=== PATIENT | female | born 1980 | race Caucasian/White ===

== ENCOUNTER → 2016-06-24 | Outpatient (CLI) | payer OTHER ==
[~2016-06-24] MED LIST: HYOS0.1281 PO; NORE-98 PO; OMEP20TA7 PO; ONDA8TAB9 PO
--- OUTSIDE RECORDS SUMMARY | 2016-06-24 07:41 | XMS REPORT | Continuity of Care Document ---
Author Author [facility] Organization [facility] Address Unknown Phone Unavailable Allergies Active Description Code Type Severity Reaction Onset Reported/Identified Relationship to Patient Clinical Status Yes No Known Drug Allergies [id number] Drug Allergy Unknown N/ A 01/06/2015 Medications Problems Date Dx Coded Attending Type Code Diagnosis Diagnosed By 12/23/2014 IMANI COLE, GABRIELE A Ot 285.9 12/23/2014 IMANI COLE, GABRIELE A Ot 790.29 12/23/2014 IMANI COLE, GABRIELE A Ot V58.69 12/24/2014 IMANI COLE, GABRIELE A Ot 285.9 12/24/2014 IMANI COLE, GABRIELE A Ot 790.29 12/24/2014 IMANI COLE, GABRIELE A Ot V58.69 12/29/2014 IMANI COLE, GABRIELE A Ot 285.9 12/29/2014 IMANI COLE, GABRIELE A Ot 790.29 12/29/2014 IMANI COLE, GABRIELE A Ot V58.69 01/06/2015 JUSTINO WARNER APRN Ot 558.9 01/06/2015 JUSTINO WARNER APRN Ot 789.03 01/06/2015 IMANI COLE, GABRIELE A Ot 285.9 01/06/2015 IMANI COLE, GABRIELE A Ot 790.29 01/06/2015 IMANI COLE, GABRIELE A Ot V58.69 01/09/2015 IMANI COLE, GABRIELE A Ot 285.9 01/09/2015 IMANI COLE, GABRIELE A Ot 790.29 01/09/2015 IMANI COLE, GABRIELE Kovacs Ot V58.69 Procedures Results Encounters ACCT No. Visit Date/Time Discharge Status Pt. Type Provider Facility Loc./Unit Complaint [id number] 01/06/2015 16:01:00 2014 17:45:00 DIS Emergency JUSTINO WARNER APRN [facility] ER [id number] 12/12/2014 08:22:00 2014 23:59:59 CLS Outpatient IMANI COLE, GABRIELE [facility] LAB
--- NOTE | 2016-06-24 19:27 | Diagnostic Imaging Report ---
Digital mammogram bilateral diagnostic. INDICATION: Left breast lump. The current study was also evaluated with a Computer Aided Detection (CAD) system. FINDINGS: This is the patient's baseline study. At this time, she does complain of a lump in the 6 o'clock position of the left breast. A marker was placed over the area of concern. In this region, there does appear to be a small 5 mm rounded density. This finding has a generally benign appearance. Even so, I would recommend that ultrasound be performed for further study. The fibroglandular tissue in both breasts is dense. This does limit the sensitivity of this exam. There is no primary or secondary sign of malignancy noted otherwise. IMPRESSION: There is a small benign-appearing nodular density in the area of the patient's palpable abnormality in the 6 o'clock position of the left breast. Ultrasound would be recommended to better characterize this finding. ACR BI-RADS Category 0: Incomplete. (Needs additional imaging evaluation). Result letter will be mailed to the patient. Note: At least 10% of breast cancer is not imaged by mammography. Dictated by: Dictated on workstation # [id number]
--- NOTE | 2016-06-24 19:39 | Diagnostic Imaging Report ---
Ultrasound of the left breast. INDICATION: Left breast lump. FINDINGS: The baseline screening mammogram performed earlier today noted a small area of increased density in the area of the patient's palpable abnormality in the 6 o'clock position of the left breast. On this study, there do appear to be two small hypoechoic lesions with internal echoes. These measure 0.6 x 0.4 x 0.9 cm and 0.7 x 0.4 x 0.7 cm. I suspect that these are small cysts which have been slightly complicated by infection and/or hemorrhage. There is no internal vascularity to suggest that these are neoplastic in nature. Even so, I would recommend that a short-term (three-month) follow-up ultrasound exam be performed for further study. IMPRESSION: There are two small hypoechoic areas in the area of the patient's palpable abnormality. Most likely these are small cysts, slightly complicated by infection and/or hemorrhage. Recommendations as above. ACR BI-RADS Category 3: Probably benign findings. Dictated by: Dictated on workstation # [id number]
== END ==
LOC: RAD 07:37
PROVIDERS: ATTEND Nurse Practitioner Family
DX: N63 Unspecified lump in breast (principal)
CPT/HCPCS: 76642; 77066

== ENCOUNTER → 2016-09-29 | Outpatient (CLI) | payer OTHER ==
--- NOTE | 2016-09-29 20:25 | Diagnostic Imaging Report ---
EXAMINATION: Left breast ultrasound. INDICATION: Left breast pain and lump under the nipple. Followup lesions seen on 06/24/16. FINDINGS: Retroareolar 1.3 x 0.9 x 0.9 cm septated cystic structure is seen with no internal vascularity. There is no significant internal echoes other than the septation seen. There is also a 4:00 periareolar hypoechoic lesion, measuring 6 mm with mild internal echoes but without internal vascularity and there is through-transmission seen. Some dilated ducts are also seen. Compared to the previous study, the dominant lesion appears slightly larger. IMPRESSION: Duct ectasia and suggestion of complicated cyst in the periareolar region with no definite solid mass seen. Ultrasound followup in six months is recommended to ensure stability. ACR BI-RADS Category 3: Probably benign findings. Result letter will be mailed to the patient. Note: At least 10% of breast cancer is not imaged by mammography. Dictated by: Dictated on workstation # [id number]
== END ==
LOC: RAD 10:14
PROVIDERS: ATTEND Nurse Practitioner Family
DX: N60.42 Mammary duct ectasia of left breast (principal)
CPT/HCPCS: 76642

== ENCOUNTER → 2017-11-17 | Outpatient (CLI) | payer OTHER ==
--- NOTE | 2017-11-17 11:58 | Diagnostic Imaging Report ---
INDICATION: Followup left breast cyst. COMPARISON: 09/29/2016. FINDINGS: Ductal ectasia is again identified. The previously noted septated cystic mass at the 6 o'clock retroareolar region is again noted measuring approximately 11 mm x 8 mm compared with 13 mm x 10 mm. An adjacent hypoechoic structure at the 6 o'clock location 2 cm from the nipple is stable at 7 mm x 5 mm. No new abnormality is seen. IMPRESSION: Stable ductal ectasia and septated cystic mass in the retroareolar left breast when compared with the exam of 1 year earlier. An additional 6 month followup is recommended to confirm stability. ACR BI-RADS Category 3: Probably benign findings. Dictated by: Dictated on workstation # [id number]
== END ==
LOC: RAD 09:10
PROVIDERS: ATTEND Nurse Practitioner Family
DX: N60.42 Mammary duct ectasia of left breast (principal); N60.02 Solitary cyst of left breast
CPT/HCPCS: 76642

== ENCOUNTER 2018-02-09 12:00 | Outpatient (CLI) | payer OTHER ==
[~2018-02-09] VITALS: Ht 162.6 cm; Wt 63.5 kg
[2018-02-09] MEDS ORDERED: PANT40TA2 PO (13:28)
[2018-02-09] MEDS ORDERED: MIRA25TA PO (13:28)
[2018-02-09] MEDS ORDERED: bcp PO (13:28)
[2018-02-09] MEDS ORDERED: SUCR1TAB36 PO (13:28)
[2018-02-09] MEDS ORDERED: AMPH15TA PO (13:28)
[2018-02-09] MEDS ORDERED: RANI150T46 PO (13:28)
== END 2018-02-09 13:31 | disposition home or self-care (01) ==
LOC: PREOP 12:00
PROVIDERS: ATTEND Surgery
DX: Z01.818 Encounter for other preprocedural examination (principal)

== ENCOUNTER 2018-02-12 07:53 | Day surgery (SDC) | payer OTHER ==
[~2018-02-12] VITALS: Ht 162.6 cm; Wt 63.5 kg
[~2018-02-12 07:53] MED LIST changes: +AMPH15TA PO; +MIRA25TA PO; +PANT40TA2 PO; +RANI150T46 PO; +SUCR1TAB36 PO; +bcp PO
[2018-02-12] MEDS ORDERED: LACTATED RINGERS 1,000 ML IV ONE (07:57)
[2018-02-12 08:00] VITALS: BP 125/73
[2018-02-12] MEDS ORDERED: LACTATED RINGERS 1,000 ML IV STA (08:04)
--- NOTE | 2018-02-12 08:12 | Progress Note-Pre Operative ---
Pre-Operative Progress Note H&P Reviewed The H&P was reviewed, patient examined and no changes noted. Time Seen by Provider: 08:07 Date H&P Reviewed: Feb 12, 2018 Time H&P Reviewed: 08:08 Pre-Operative Diagnosis: Chronic Gastritis BRIANNA TURNER DO Feb 12, 2018 08:12
[2018-02-12] MEDS ORDERED: HURRICAINE EXT TUBE (BENZOCAINE) XX PRN (08:15)
[2018-02-12] MEDS ORDERED: proPOfol 200 MG/20 ML (DIPRIVAN) VIAL IV ONE ×2 (08:23→08:42)
[2018-02-12] MEDS ORDERED: LIDOCAINE PF 2% 5 ML (XYLOCAINE) VIAL ONE (08:24)
--- NOTE | 2018-02-12 08:56 | Progress Note-Post Operative ---
Post-Operative Progess Note Surgeon (s)/Pole Framer (s) Surgeon BRIANNA TURNER DO Pole Framer: none Pre-Operative Diagnosis Chronic Gastritis Post-Operative Diagnosis Same plus gastric polyps Procedure & Operative Findings Date of Procedure 02/12/18 Procedure Performed/Findings EGD with polypectomy EGD with bx Anesthesia Type IV sedation by PHYSICIAN OBSTETRICIAN Estimated Blood Loss Estimated blood loss (mL): scant Specimens/Packing Specimens Removed Duodenal bx Antral bx GE jxn bx Polyp and portion of second polyp from body of stomach BRIANNA TURNER DO Feb 12, 2018 08:56
--- NOTE | 2018-02-12 08:57 | Endoscopy Discharge Instruct ---
Endo Procedure/Findings Findings 1.: Polyp 2.: Gastritis Discharge Instructions - Activity: You might feel a little sleepy until tomorrow. This is due to the medicine you received to relax you. Until tomorrow, you should: NOT drive a car, operate machinery or power tools. NOT drink any alcoholic beverages. NOT make any important decisions or sign importortant papers. Do not return to work until tomorrow, unless otherwise instructed. Resume previous activities tomorrow. Diet: Start by taking liquids. If you tolerate liquids, advance to solid food. make an appointment for one week. Notify Physician - If you experience excessive bleeding, unusual abdominal pain, fever, or chest pain, contact your doctor immediately. Follow-Up: - I have received and understand the above instructions and will call my doctor if I have any further questions. Patient Signature Date Nurse Signature Other (Relationship) BRIANNA TURNER DO Feb 12, 2018 08:57
[2018-02-12] MEDS ORDERED: HURRICAINE EXT TUBE (BENZOCAINE) ONE (09:00)
[2018-02-12 09:10] VITALS: BP 108/56
[2018-02-12 09:40] VITALS: BP 112/76
[2018-02-12 09:47] VITALS: BP 112/76
--- NOTE | 2018-02-12 13:30 | Anesthesia-General Post-Op ---
MAC Patient Condition Mental Status/LOC: Same as Preop Cardiovascular: Satisfactory Nausea/Vomiting: Absent Respiratory: Satisfactory Pain: Controlled Complications: Absent Post Op Complications Complications None Follow Up Care/Instructions Patient Instructions None needed. Anesthesiology Discharge Order Discharge Order Patient is doing well, no complaints, stable vital signs, no apparent adverse anesthesia problems. No complications reported per nursing. AYALA PALUMBO CRNA Feb 12, 2018 13:30
--- NOTE | 2018-02-12 19:39 | OPERATIVE REPORT ---
DATE OF SERVICE: 02/12/2018 PREOPERATIVE DIAGNOSIS: Chronic gastritis. POSTOPERATIVE DIAGNOSES: Chronic gastritis and multiple gastric polyps. PROCEDURE: 1. EGD with polypectomy. 2. EGD with biopsy. SURGEON: Chidi Iniguez DO PIECE MARKER SMALL ARMS: None. ANESTHESIA: IV sedation by the COMMUNITY HEALTH SPECIALIST. SPECIMEN: 1. One polyp from the duodenum, one polyp from the antrum and one polyp from the GE junction. 2. Two polyps from the body of the stomach, one removed in total. INDICATION FOR PROCEDURE: The patient is a 37-year-old female, who has severe gastritis and getting worse lately. The Protonix not working and she needed EGD for workup. FINDINGS: The patient had some gastritis, it looks like also possibly duodenitis and some changing at the GE junction and as well she had multiple polyps in the body of the stomach. PROCEDURE NOTE: After informed consent was obtained, the patient was brought to the endoscopy suite and placed in the left lateral decubitus position. She was administered IV sedation by the COMMUNITY HEALTH SPECIALIST, who then monitored her vitals the entire time, heart rate, blood pressure and pulse ox. The scope was inserted down the mouth through the esophagus into the stomach, pushed all the way to the stomach to the pylorus and then into the duodenum. Duodenum looked a little bit red. There was some duodenitis, did a biopsy here, pulled back into the antrum, did another biopsy and then pulled back a little more and saw multiple polyps in the body of stomach. I had elected to remove two of these polyps and sent to pathology and then retroflexed. I did not really see a hiatal hernia. At this point, then pulled the scope back into the GE junction, there was a little bit of creeping up of the Z line. A biopsy was done here and then pulled back from the esophagus, took another picture, esophagus looked normal. I then pulled the scope slowly out of the esophagus out of the mouth. The patient tolerated the procedure. She was then recovered in endoscopy suite. Job ID: [id number] DocumentID: [id number] Dictated Date: 02/12/2018 09:56:07 Farm Management Agent Date: 02/12/2018 19:38:29 Dictated By: CHIDI INIGUEZ DO
--- NOTE | 2018-02-15 14:42 | Physician Query-Final Dx ---
EMILY FAROOQ 02/15/18 1442: Clinic Account Progress/Dx Physician Query: Please specify type of polypectomy used ( ie, hot bx, snare, ect ) thank you Date of Service Feb 12, 2018 at 07:53 BRIANNA TURNER DO 02/20/18 1436: Clinic Account Progress/Dx Physician Query: Please give diagnosis (cold biopsy) DIAGNOSIS: Diagnosis: (1) Chronic gastritis without bleeding Qualifiers: Qualified Codes: K29.30 - Chronic superficial gastritis without bleeding Diagnosis Cold biopsy EMILY FAROOQ Feb 15, 2018 14:42 BRIANNA TURNER DO Feb 20, 2018 14:36
== END 2018-02-12 09:48 | disposition home or self-care (01) ==
LOC: ENDO 07:53
PROVIDERS: ATTEND Surgery
DX: K29.30 Chronic superficial gastritis without bleeding (principal); K31.7 Polyp of stomach and duodenum; K29.80 Duodenitis without bleeding; K21.9 Gastro-esophageal reflux disease without esophagitis; Z79.899 Other long term (current) drug therapy
CPT/HCPCS: 84703; 88305; 88307; 88342

== ENCOUNTER → 2018-03-29 | Outpatient (CLI) | payer OTHER ==
[~2018-03-29] MED LIST changes: +BARIUM SUSPENSION 105% (LIQUID POLIBAR PLUS) 240 ML/DOSE PO ONE; +BARIUM SUSPENSION 60% (LIQUID EZ PAQUE) 240 ML DOSE PO ONE
--- NOTE | 2018-03-29 09:54 | Diagnostic Imaging Report ---
Indication: Gastroesophageal reflux. The patient ingested effervescent crystals as well as thin and thick barium and imaging of the esophagus was performed. 1 minute and 21 seconds of fluoroscopy was utilized. Preliminary radiograph of the chest is normal. The esophagus has a smooth contour. No mass or stricture is identified. No gastroesophageal reflux or hiatal hernia was visualized. The images of the stomach are unremarkable. Impression: Unremarkable esophagram. Dictated by: Dictated on workstation # [id number]
== END ==
LOC: RAD 08:17
PROVIDERS: ATTEND Internal Medicine Gastroenterology
DX: K21.9 Gastro-esophageal reflux disease without esophagitis (principal)
CPT/HCPCS: 74220

== ENCOUNTER → 2019-04-30 | Outpatient (CLI) | payer OTHER ==
[~2019-04-30] MED LIST changes: -BARIUM SUSPENSION 105% (LIQUID POLIBAR PLUS) 240 ML/DOSE PO ONE; -BARIUM SUSPENSION 60% (LIQUID EZ PAQUE) 240 ML DOSE PO ONE; +RANI-613 PO; -RANI150T46 PO
--- NOTE | 2019-04-30 09:46 | Diagnostic Imaging Report ---
INDICATION: Followup left breast. Patient's prior report from 11/17/2017 recommended a 6 month followup. The patient did not return for a followup. This is an 18 month followup. COMPARISON: 06/24/2016. TECHNIQUE: 2D and 3D bilateral diagnostic mammography was performed with CAD. FINDINGS: Both breasts remain heterogeneously dense, limiting the sensitivity of mammography. There is a lymph node in the right axillary tail. No dominant mass is seen. No malignant appearing microcalcifications are identified. The axillae are unremarkable. IMPRESSION: No mammographic features suspicious for malignancy are identified. Even so, sonographic interrogation of the 6 o'clock location of the left breast at the area of the previously described complicated cyst is recommended and will be performed today. ACR BI-RADS Category 0: Incomplete. (Needs additional imaging evaluation). Result letter will be mailed to the patient. Note: At least 10% of breast cancer is not imaged by mammography. Dictated by: Dictated on workstation # [id number]
--- NOTE | 2019-04-30 09:49 | Diagnostic Imaging Report ---
INDICATION: Followup of left breast cysts. COMPARISON: Correlation is made with the prior left breast ultrasound from 11/17/2017 and the diagnostic mammogram performed earlier this same day. FINDINGS: Ductal ectasia is again noted. The 6 o'clock retroareolar cyst is similar in size measuring 13 mm x 5 mm x 7 mm compared with 11 mm x 8 mm. The smaller cyst at the 6 o'clock location 2 cm from the nipple has decreased in size measuring 5 mm x 6 mm x 4 mm compared with 7 mm x 5 mm x 7 mm. No new abnormality is seen. IMPRESSION: Ductal ectasia with retroareolar cysts as described, stable when compared with ultrasounds dating back to September 2016. The patient may return to routine annual screening mammography. ACR BI-RADS Category 2: Benign findings. Dictated by: Dictated on workstation # [id number]
== END ==
LOC: RAD 08:15
PROVIDERS: ATTEND Nurse Practitioner Family
DX: N60.02 Solitary cyst of left breast (principal); N60.42 Mammary duct ectasia of left breast
CPT/HCPCS: 76642; 77066

== ENCOUNTER 2020-04-09 12:38 | Emergency (ER) | payer OTHER ==
[~2020-04-09] VITALS: Ht 170 cm; Wt 62.0 kg
[2020-04-09] MEDS ORDERED: NS IV 1000 ML 1,000 ML IV SCH (13:00)
[2020-04-09] MEDS ORDERED: ACETAMINOPHEN 325 MG TABLET PO ONE (13:00)
--- NOTE | 2020-04-09 13:23 | ED General ---
General Stated Complaint: COVID +,WEAKNESS, DIZZINESS Source of Information: Patient Exam Limitations: No Limitations History of Present Illness Date Seen by Provider: Apr 09, 2020 Time Seen by Provider: 13:10 Initial Comments Patient is a 39-year-old female who presents to the emergency room with a chief complaint of generalized weakness, dizziness with standing and concerns for dehydration. Patient had a telehealth visit with her primary care this morning and they were concerned about dehydration. Patient states that when she stands up her heart rate tends to go to about 140 bpm. Patient states that she was a "presumptive positive" for coronavirus about 10 days ago. Patient states she started getting "all the symptoms" with shortness of breath, body aches, subjective fever and cough. Patient also states that she has lost her sense of smell and the sense of salty versus sweet taste. No complaints of GI illness currently although she did have 1 day of diarrhea about a week ago. No complaints. No sore throat no runny nose or congestion. All other review of systems reviewed and negative except as stated. Timing/Duration: 1 Week Severity: Mild Allergies and Home Medications Allergies Coded Allergies: metoclopramide (Verified Allergy, Unknown, 02/09/18) Home Medications Dextroamphetamine/Amphetamine 15 Mg Tablet, 15 MG PO DAILY, (Reported) Mirabegron 25 Mg Tab.er.24h, 25 MG PO DAILY, (Reported) Pantoprazole Sodium 40 Mg Tablet.dr, 40 MG PO BID, (Reported) Ranitidine HCl 150 Mg Tablet, 150 MG PO DAILY, (Reported) Sucralfate 1 Gm Tablet, 1 GM PO QID, (Reported) [bcp] , 1 TAB PO DAILY, (Reported) Patient Home Medication List Home Medication List Reviewed: Yes Review of Systems Review of Systems Constitutional: see HPI, malaise, weakness EENTM: no symptoms reported Respiratory: cough (Mild), short of breath (Mild) Cardiovascular: no symptoms reported Gastrointestinal: no symptoms reported Genitourinary: no symptoms reported : No Musculoskeletal: muscle pain (Body aches) Skin: no symptoms reported All Other Systems Reviewed Negative Unless Noted: Yes Past [place]mf-Yxdxmu Hx Patient Social History Recent Hopitalizations: No Immunizations Up To Date Date of Influenza Vaccine: Jan 29, 2018 Past Medical History Appendectomy Gastroesophageal Reflux, Irritable Bowel Adverse Reaction/Blood Tranf: No Physical Exam Vital Signs Vital Signs - First Documented 04/09/20 13:43 Temp 36.8 Pulse 104 Resp 16 B/P (MAP) 134/87 (103) Pulse Ox 98 Capillary Refill : Height, Weight, BMI Height: 5'4.00" Weight: 140lbs. 0.0oz. 63.921007bx; 24.0 BMI Method:Stated General Appearance: No Apparent Distress, WD/WN Eyes: Bilateral Eye Normal Inspection, Bilateral Eye PERRL, Bilateral Eye EOMI HEENT: Normal ENT Inspection Neck: Supple Respiratory: Lungs Clear, Normal Breath Sounds, No Accessory Muscle Use, No Respiratory Distress Cardiovascular: Regular Rate, Rhythm Gastrointestinal: Normal Bowel Sounds, Non Tender, Soft Extremity: Normal Inspection, Normal Range of Motion, Non Tender, No Calf Tenderness Neurologic/Psychiatric: Alert, Oriented x3, No Motor/Sensory Deficits, Normal Mood/Affect, data support specialist II-XII Norm as Tested Skin: Normal Color, Warm/Dry, Other (Normal skin turgor) Focused Exam Lactate Level 04/09/20 13:10: Lactic Acid Level 2.78*H Lactic Acid Level Laboratory Tests Test 04/09/20 13:10 Lactic Acid Level 2.78 MMOL/L (0.50-2.00) *H Progress/Results/Core Measures Suspected Sepsis SIRS Temperature: Pulse: Respiratory Rate: Laboratory Tests 04/09/20 13:10: White Blood Count 5.9 Blood Pressure / Mean: 04/09/20 13:10: Lactic Acid Level 2.78*H Laboratory Tests 04/09/20 13:10: Creatinine 0.82, INR Comment 0.9, Platelet Count 231, Total Bilirubin 0.2 Results/Orders Lab Results Laboratory Tests Test 04/09/20 13:10 Range/Units White Blood Count 5.9 4.3-11.0 10^3/uL Red Blood Count 4.06 3.80-5.11 10^6/uL Hemoglobin 11.1 L 11.5-16.0 g/dL Hematocrit 34 L 35-52 % Mean Corpuscular Volume 85 80-99 fL Mean Corpuscular Hemoglobin 27 25-34 pg Mean Corpuscular Hemoglobin Concent 32 32-36 g/dL Red Cell Distribution Width 14.6 H 10.0-14.5 % Platelet Count 231 130-400 10^3/uL Mean Platelet Volume 9.5 9.0-12.2 fL Immature Granulocyte % (Auto) 1 % Neutrophils (%) (Auto) 88 H 42-75 % Lymphocytes (%) (Auto) 9 L 12-44 % Monocytes (%) (Auto) 2 0-12 % Eosinophils (%) (Auto) 0 0-10 % Basophils (%) (Auto) 0 0-10 % Neutrophils # (Auto) 5.2 1.8-7.8 10^3/uL Lymphocytes # (Auto) 0.5 L 1.0-4.0 10^3/uL Monocytes # (Auto) 0.1 0.0-1.0 10^3/uL Eosinophils # (Auto) 0.0 0.0-0.3 10^3/uL Basophils # (Auto) 0.0 0.0-0.1 10^3/uL Immature Granulocyte # (Auto) 0.0 0.0-0.1 10^3/uL Neutrophils % (Manual) 79 % Lymphocytes % (Manual) 10 % Monocytes % (Manual) 0 % Eosinophils % (Manual) 0 % Basophils % (Manual) 0 % Band Neutrophils 11 % Microcytosis SLIGHT Prothrombin Time 13.0 12.2-14.7 SEC INR Comment 0.9 0.8-1.4 Activated Partial Thromboplast Time 29 24-35 SEC Fibrinogen 512 H 221-496 MG/DL Sodium Level 134 L 135-145 MMOL/L Potassium Level 3.8 3.6-5.0 MMOL/L Chloride Level 104 98-107 MMOL/L Carbon Dioxide Level 20 L 21-32 MMOL/L Anion Gap 10 5-14 MMOL/L Blood Urea Nitrogen 11 7-18 MG/DL Creatinine 0.82 0.60-1.30 MG/DL Estimat Glomerular Filtration Rate > 60 BUN/Creatinine Ratio 13 Glucose Level 164 H 70-105 MG/DL Lactic Acid Level 2.78 *H 0.50-2.00 MMOL/L Calcium Level 8.2 L 8.5-10.1 MG/DL Corrected Calcium 8.5 8.5-10.1 MG/DL Total Bilirubin 0.2 0.1-1.0 MG/DL Aspartate Amino Transf (AST/SGOT) 21 5-34 U/L Alanine Aminotransferase (ALT/SGPT) 25 0-55 U/L Alkaline Phosphatase 90 40-136 U/L Lactate Dehydrogenase 184 125-220 U/L Troponin I < 0.028 <0.028 NG/ML C-Reactive Protein High Sensitivity 5.80 H 0.00-0.50 MG/DL Total Protein 7.1 6.4-8.2 GM/DL Albumin 3.6 3.2-4.5 GM/DL Medications Given in ED Current Medications Medications Dose Ordered Sig/Marysol Route Start Time Stop Time Status Last Admin Dose Admin Acetaminophen 650 mg ONCE ONCE PO 04/09/20 13:00 04/09/20 13:01 DC 04/09/20 13:26 650 MG Vital Signs/I&O 04/09/20 04/09/20 04/09/20 13:43 13:58 14:55 Temp 36.8 36.8 Pulse 104 104 88 Resp 16 16 16 B/P (MAP) 134/87 (103) 134/87 127/81 Pulse Ox 98 Capillary Refill : brisk Progress Note : Time: 15:00 Progress Note Patient received 2 L of normal saline IV bolus. She did have a mild lactic acidosis at 2.78. She is presumptive positive coronavirus has not been tested but has had symptoms for the last 9 days. Patient felt malaise and fatigue, complained of orthostatic type symptoms. She did not have a positive orthostat ic tilt after 2 L of IV fluids. She feels improved. She is not dizzy when she stands. Patient will be sent home with continued conservative care management. She is comfortable with plan of care. All questions are sought and answered and she is stable for discharge. ECG Initial ECG Impression Date: Apr 09, 2020 Initial ECG Impression Time: 13:39 Initial ECG Rate: 98 Initial ECG Rhythm: S.Tach Initial ECG Intervals: Normal Initial ECG Impression: Normal Initial ECG Comparisson: No Previous ECG Available Departure Impression Primary Impression: Dizziness Additional Impressions: Malaise and fatigue Lactic acidosis Disposition: 01 HOME, SELF-CARE Condition: Stable Departure-Patient Inst. Decision time for Depature: 15:02 Referrals: GABRIELE DIALLO MD (PCP/Family) Primary Care Physician Patient Instructions: Coronavirus Disease 2019 (COVID-19) (DC), Fatigue (DC) Add. Discharge Instructions: Drink plenty of fluids to stay well-hydrated. Continue isolation for a total of 14 days after your symptoms began. Return to the emergency room for any worsening symptoms or new emergent concerns. Please follow-up with your primary care physician. SANTIAGO RUIZ MD Apr 09, 2020 13:23
[2020-04-09 13:36] LABS: BASOPHILS % (AUTO) 0 % (0-10); EOSINOPHILS % (AUTO) 0 % (0-10); HEMATOCRIT 34 % (35-52); HEMOGLOBIN 11.1 g/dL (11.5-16.0); LYMPHOCYTES # (AUTO) 0.5 10^3/uL (1.0-4.0); LYMPHOCYTES % (AUTO) 9 % (12-44); MEAN CORPUSCULAR HEMOGLOBIN 27 pg (25-34); MEAN CORPUSCULAR HGB CONC 32 g/dL (32-36); MEAN CORPUSCULAR VOLUME 85 fL (80-99); MEAN PLATELET VOLUME 9.5 fL (9.0-12.2); MONOCYTES # (AUTO) 0.1 10^3/uL (0.0-1.0); MONOCYTES % (AUTO) 2 % (0-12); NEUTROPHILS # (AUTO) 5.2 10^3/uL (1.8-7.8); NEUTROPHILS % (AUTO) 88 % (42-75); PLATELET COUNT 231 10^3/uL (130-400); WHITE BLOOD COUNT 5.9 10^3/uL (4.3-11.0)
[2020-04-09 13:49] LABS: ALBUMIN 3.6 GM/DL (3.2-4.5); CHLORIDE 104 MMOL/L (98-107); POTASSIUM 3.8 MMOL/L (3.6-5.0); SODIUM 134 MMOL/L (135-145)
[2020-04-09 13:50] LABS: CALCIUM 8.2 MG/DL (8.5-10.1)
[2020-04-09 13:51] LABS: GLUCOSE 164 MG/DL (70-105)
[2020-04-09 13:52] LABS: TOTAL PROTEIN 7.1 GM/DL (6.4-8.2)
[2020-04-09 13:53] LABS: BILIRUBIN,TOTAL 0.2 MG/DL (0.1-1.0); CARBON DIOXIDE 20 MMOL/L (21-32)
[2020-04-09 13:55] LABS: ALKALINE PHOSPHATASE 90 U/L (40-136); CREATININE SERUM 0.82 MG/DL (0.60-1.30); GFR ESTIMATED > 60
[2020-04-09 13:56] LABS: BUN/CREATININE RATIO 13
[2020-04-09 13:58] LABS: ALANINE AMINOTRANSFERASE 25 U/L (0-55); INR 0.9 (0.8-1.4)
[2020-04-09 14:00] LABS: BAND NEUTROPHILS 11 %; BASOPHILS % (MANUAL) 0 %; EOSINOPHILS % (MANUAL) 0 %; LYMPHOCYTES % (MANUAL) 10 %; MICROCYTOSIS SLIGHT; MONOCYTES % (MANUAL) 0 %; NEUTROPHILS % (MANUAL) 79 %
--- NOTE | 2020-04-09 14:12 | Diagnostic Imaging Report ---
INDICATION: COVID positive. TIME OF EXAM: 01:46 p.m. COMPARISON: Correlation is made with prior chest from 01/06/2015. FINDINGS: Patchy infiltrate in the right base is noted, consistent with pneumonia. Left lung is clear. No effusion or pneumothorax is seen. IMPRESSION: Patchy right basilar pneumonia. Dictated by: Dictated on workstation # [id number]
[2020-04-09 15:01] VITALS: BP 125/83
== END 2020-04-09 15:31 | disposition home or self-care (01) ==
LOC: EDUNIT# 12:38 → ER 12:39
DX: R42 Dizziness and giddiness (principal); R53.81 Other malaise; R53.83 Other fatigue; E87.2 Acidosis; K21.9 Gastro-esophageal reflux disease without esophagitis; Z88.8 Allergy status to other drugs, medicaments and biological substances
CPT/HCPCS: 36415; 71045; 80053; 82728; 83605; 83615; 84484; 85007; 85027; 85384; 85610; 85730; 86141; 93005

== ENCOUNTER → 2020-04-28 | Outpatient (CLI) | payer OTHER ==
--- NOTE | 2020-04-28 13:01 | Diagnostic Imaging Report ---
INDICATION: Routine screening. Comparison is made with prior mammogram 04/30/2019 and 06/24/2016. 2-D and 3-D bilateral screening mammography was performed with CAD. Both breasts are heterogeneously dense, limiting the sensitivity of mammography. The parenchymal pattern is stable. No mass or malignant appearing microcalcifications are seen. Axillae are unremarkable. IMPRESSION: BI-RADS Category 1 No mammographic features suspicious for malignancy are identified. ACR BI-RADS Category 1: Negative. Result letter will be mailed to the patient. Note: At least 10% of breast cancer is not imaged by mammography. Dictated by: Dictated on workstation # [id number]
== END ==
LOC: RAD 08:00
PROVIDERS: ATTEND Nurse Practitioner
DX: Z12.31 Encounter for screening mammogram for malignant neoplasm of breast (principal)
CPT/HCPCS: 77063; 77067

== ENCOUNTER → 2021-04-30 | Outpatient (CLI) | payer OTHER ==
--- NOTE | 2021-04-30 11:23 | Diagnostic Imaging Report ---
Digital mammogram bilateral screening COMPARISON: This study was compared to the prior exam of 04/28/2020 and 04/30/2019. At this time, there are no current complaints. The current study was also evaluated with a Computer Aided Detection (CAD) system. FINDINGS: The fibroglandular tissue in both breasts is heterogeneously dense. This does limit the sensitivity of this exam. Overall, there does not appear to have been any significant change when compared to the prior study. No primary or secondary sign of malignancy is noted. IMPRESSION: There is no radiographic evidence for malignancy. ACR category 1 ACR BI-RADS Category 1: Negative. Result letter will be mailed to the patient. Note: At least 10% of breast cancer is not imaged by mammography. Dictated by: Dictated on workstation # [id number]
== END ==
LOC: RAD 08:30
PROVIDERS: ATTEND Nurse Practitioner Family
DX: Z12.31 Encounter for screening mammogram for malignant neoplasm of breast (principal)
CPT/HCPCS: 77063; 77067